=== PATIENT | female | born 1990 | race Caucasian/White ===

== ENCOUNTER 2018-10-04 01:28 | Emergency (ER) | payer OTHER ==
--- NOTE | 2018-10-04 02:03 | ED ---
GI/ HPI - HPI Summary HPI Summary: This patient is a 28 year old female presenting to [facility] with a chief complaint of vaginal bleeding since 1 hour ago. Patient states that she was just with several friends, but when she went to the bathroom, she saw blood. Patient is 10 weeks . Patient states that she presents to the ED with concerns of miscarriage. Patient states that she put a liner on, but replaced it when it filled up with blood. The pain is rated 0/10 in severity. Symptoms aggravated by nothing. Symptoms alleviated by nothing. Patient denies abd cramps, dysuria. - History of Current Complaint Chief Complaint: EDOBProblems Time Seen by Provider: 10/04/18 01:47 Stated Complaint: 10 WKS /VAGINAL BLEEDING Hx Obtained From: Patient Onset/Duration: Started Hours Ago, Still Present Timing: Constant Current Severity: Moderate Pain Intensity: 0 Associated Signs and Symptoms: Positive: Negative - abd cramping, dysuria Aggravating Factor(s): Nothing Alleviating Factor(s): Nothing - Allergy/Home Medications Allergies/Adverse Reactions: Allergies Allergy/AdvReac Type Severity Reaction Status Date / Time No Known Allergies Allergy Verified 10/04/18 01:32 Home Medications: Home Medications NK [No Home Medications Reported] 10/04/18 [History Confirmed 10/04/18] PMH/Surg Hx/FS Hx/Imm Hx Previously Healthy: Yes Opthamlomology History: Denies: Hx Legally Blind EENT History: Denies: Hx Deafness Infectious Disease History: No Infectious Disease History: Denies: Traveled Outside the [place] in Last 30 Days - Family History Known Family History: Negative: Hypertension - Social History Alcohol Use: None Hx Substance Use: No Substance Use Type: Reports: None Hx Tobacco Use: No Smoking Status (MU): Never Smoked Tobacco Review of Systems Negative: Fever Negative: Abdominal Pain Genitourinary: Other - vaginal bleeding Negative: dysuria All Other Systems Reviewed And Are Negative: Yes Physical Exam - Summary Physical Exam Summary: VITAL SIGNS: Reviewed. GENERAL: Patient is a well-developed and nourished female who is lying comfortable in the stretcher. Patient is not in any acute respiratory distress. HEAD AND FACE: No signs of trauma. No ecchymosis, hematomas or skull depressions. No sinus tenderness. EYES: PERRLA, EOMI x 2, No injected conjunctiva, no nystagmus. EARS: Hearing grossly intact. Ear canals and tympanic membranes are within normal limits. MOUTH: Oropharynx within normal limits. NECK: Supple, trachea is midline, no adenopathy, no JVD, no carotid bruit, no c- spine tenderness, neck with full ROM. CHEST: Symmetric, no tenderness at palpation LUNGS: Clear to auscultation bilaterally. No wheezing or crackles. CVS: Regular rate and rhythm, S1 and S2 present, no murmurs or gallops appreciated. ABDOMEN: Soft, non-tender. No signs of distention. No rebound no guarding, and no masses palpated. Bowel sounds are normal. EXTREMITIES: FROM in all major joints, no edema, no cyanosis or clubbing. NEURO: Alert and oriented x 3. No acute neurological deficits. Speech is normal and follows commands. PELVIC: Bedside US showed Intrauterine with movement and heartbeat positive. Mild to moderate vaginal bleeding. Cervix is closed and posteriorly. Uterine size is 12 weeks. We had an ER aide, Sarai, as a bookie SKIN: Dry and warm Triage Information Reviewed: Yes Vital Signs On Initial Exam: Initial Vitals Temp Pulse Resp BP Pulse Ox 98.6 F 78 18 142/90 100 10/04/18 01:30 10/04/18 01:30 10/04/18 01:30 10/04/18 01:30 10/04/18 01:30 Vital Signs Reviewed: Yes Diagnostics - Vital Signs Vital Signs Temp Pulse Resp BP Pulse Ox 10/04/18 01:30 98.6 F 78 18 142/90 100 - Laboratory Lab Statement: Any lab studies that have been ordered have been reviewed, and results considered in the medical decision making process. GIGU Course/Dx - Course Course Of Treatment: This patient is a 28 year old female presenting to [facility] with a chief complaint of vaginal bleeding since 1 hour ago. Patient states that she was just with several friends, but when she went to the bathroom, she saw blood. Patient is 10 weeks . Patient states that she presents to the ED with concerns of miscarriage. The pt is hemodynamically stable, alert and oriented x3. Patient will be discharged with a dx of threatened miscarriage. Patient is advised to follow up with her OBGYN on Saturday, 2018. The patient is agreeable with this plan. - Diagnoses Provider Diagnoses: Threatened miscarriage Discharge - Sign-Out/Discharge Documenting (check all that apply): Patient Departure Patient Received Moderate/Deep Sedation with Procedure: No - Discharge Plan Condition: Stable Disposition: HOME Patient Education Materials: Threatened Miscarriage (ED) Forms: *Work Release Referrals: Laurel Jarvis CNM [Primary Care Provider] - 2 Days Additional Instructions: Home rest is recommended. No sexual intercourse until the bleeding stops. Schedule an appointment with your OBGYN for Saturday. Patient is O Positive. Return to the ED for any new or worsening symptoms. - Attestation Statements Document Initiated by Scribe: Yes Documenting Scribe: Ciera Daniel Provider For Whom Scribe is Documenting (Include Credential): Jamie Bonds MD Scribe Attestation: Ciera Ram, scribed for Jamie Bonds MD on 10/04/18 at 0538.
[2018-10-04 02:25] VITALS: BP 126/75
== END 2018-10-04 02:23 | disposition home or self-care (01) ==
LOC: ED 01:28
DX: O20.0 Threatened abortion (principal); Z3A.10 10 weeks gestation of pregnancy
CPT/HCPCS: 99282

== ENCOUNTER 2018-11-07 18:48 | Emergency (ER) | payer OTHER ==
[2018-11-07] MEDS ORDERED: Ondansetron INJ* 2 MG/ML VIAL IV ONE (19:07)
[2018-11-07] MEDS ORDERED: NS 0.9% 1000 ML** 1,000 ML IV ONE ×3 (19:07→23:13)
[2018-11-07] MEDS ORDERED: Morphine 10 MG/ML VIAL (1 ml) IV ONE (19:07)
--- NOTE | 2018-11-07 19:19 | ED ---
Abdominal Pain/Female - HPI Summary HPI Summary: 28 yo female presents with pelvic pain and vaginal bleeding. She tells me that she is 15 weeks and was dx'd with a subchorionic hemorrhage about a month ago. She has had some small amounts of bleeding and small clots since that time, but today around noon she started passing large amounts of blood with large blood clots accompanied by pelvic pain. She also felt feverish and took her temperature and it was 100F. She took tylenol, but vomited soon after. Has had nothing to eat or drink due to nausea and pain since 1200. She also feels a little dizzy and attributes this to her bleeding. This is her first . Denies recent illness, SOB, chest pain, palpitations. No PMHx. - History of Current Complaint Chief Complaint: EDOBProblems Stated Complaint: 15 WKS PREG/FEVER, CRAMPS,BLEEDING PER PT Time Seen by Provider: 11/07/18 19:07 Hx Obtained From: Patient Onset/Duration: Sudden Onset Severity Initially: Severe Severity Currently: Severe Pain Intensity: 8 Pain Scale Used: 0-10 Numeric Allergies/Adverse Reactions: Allergies Allergy/AdvReac Type Severity Reaction Status Date / Time No Known Allergies Allergy Verified 11/07/18 19:38 PMH/Surg Hx/FS Hx/Imm Hx Endocrine/Hematology History: Denies: Hx Anticoagulant Therapy, Hx Blood Disorders, Hx Blood Transfusions Cardiovascular History: Denies: Hx Atrial Fibrillation, Hx Congenital Heart Disease, Hx Congestive Heart Failure, Hx Deep Vein Thrombosis, Hx Embolism Respiratory History: Denies: Hx Asthma, Hx Pulmonary Embolism GI History: Denies: Hx Gastrointestinal Bleed Sensory History: Denies: Hx Legally Blind, Hx Deafness Opthamlomology History: Denies: Hx Legally Blind Neurological History: Denies: Hx CVA, Hx Headaches, Hx Migraine - Immunization History Immunizations Up to Date: Yes Infectious Disease History: No Infectious Disease History: Denies: Traveled Outside the [place] in Last 30 Days - Family History Known Family History: Negative: Hypertension - Social History Occupation: Employed Full-time Lives: With Family Alcohol Use: None Hx Substance Use: No Substance Use Type: Reports: None Hx Tobacco Use: No Smoking Status (MU): Never Smoked Tobacco Review of Systems Positive: Fatigue Eyes: Negative ENT: Negative Cardiovascular: Negative Respiratory: Negative Positive: Abdominal Pain, Vomiting, Nausea Positive: other - Vaginal bleeding Skin: Negative Neurological: Negative Psychological: Normal All Other Systems Reviewed And Are Negative: Yes Physical Exam - Summary Physical Exam Summary: GENERAL: NAD. Pale appearing. SKIN: No rashes, sores, lesions, or open wounds. NECK: Supple. Nontender. No lymphadenopathy. CHEST: CTAB. No r/r/w. No accessory muscle use. Breathing comfortably and in no distress. CV: RRR. Without m/r/g. Pulses intact. Cap refill <2seconds ABDOMEN: Moderate lower abdominal TTP. No distention or guarding. No CVA tenderness. Bowel sounds present NEURO: Alert. PSYCH: Age appropriate behavior. Triage Information Reviewed: Yes Vital Signs On Initial Exam: Initial Vitals Temp Pulse Resp BP Pulse Ox 99.3 F 104 20 109/70 98 11/07/18 18:50 11/07/18 18:50 11/07/18 18:50 11/07/18 18:50 11/07/18 18:50 Vital Signs: Temp Pulse Resp BP Pulse Ox 97.6 F 69 15 118/78 98 11/07/18 23:58 11/07/18 23:58 11/07/18 23:58 11/07/18 23:58 11/07/18 23:58 Vital Signs Reviewed: Yes Pelvic Exam: Positive: No Cerv. Motion Tender, Active Bleeding - Mild, Other - few <5mm clots mixed with mild active bleeding. Negative: Lesions, Tender w/ Cervical Motion, Ulcers Diagnostics - Vital Signs Vital Signs Temp Pulse Resp BP Pulse Ox 11/07/18 19:03 79 27 125/86 100 11/07/18 18:50 99.3 F 104 20 109/70 98 - Laboratory Lab Results: Laboratory Tests 11/07/18 11/07/18 11/07/18 19:23 19:23 19:23 WBC 22.4 H RBC 3.70 Hgb 10.9 L Hct 33 MCV 89 MCH 30 MCHC 33 RDW 15 Plt Count 228 MPV 9.5 Neut % (Auto) 94.0 Lymph % (Auto) 1.9 [place] % (Auto) 4.0 Eos % (Auto) 0 Baso % (Auto) 0.1 Absolute Neuts (auto) 21.3 H Absolute Lymphs (auto) 0.4 L Absolute Monos (auto) 0.9 H Absolute Eos (auto) 0 Absolute Basos (auto) 0 Absolute Nucleated RBC 0 Nucleated RBC % 0 Sodium 133 L Potassium 3.6 Chloride 101 Carbon Dioxide 22 Anion Gap 10 BUN 8 Creatinine 0.60 Est GFR ( Amer) 143.0 Est GFR (Non-Af Amer) 118.2 BUN/Creatinine Ratio 13.3 Glucose 123 H Lactic Acid 1.7 Calcium 9.0 Magnesium 1.5 L Total Bilirubin 0.40 AST 18 ALT 13 Alkaline Phosphatase 62 C-Reactive Protein 11.92 H Total Protein 6.8 Albumin 3.8 Globulin 3.0 Albumin/Globulin Ratio 1.3 Lipase < 10 L Beta HCG, Quant 225265.00 Result Diagrams: 11/07/18 19:23 11/07/18 19:23 Lab Statement: Any lab studies that have been ordered have been reviewed, and results considered in the medical decision making process. Re-Evaluation - Re-Evaluation First Eval Re-Evaluation Time: 21:40 Change: Improved Comment: Pelvic pain is improved, but still present - better with po tylenol. Has not had any more passing of large clots since presenting to ED. Second Eval Re-Evaluation Time: 23:18 Change: Improved Comment: Discussed conversation I had with OBGYN with pt and her . Her pain is significantly improved, but still feels some mild bleeding. Abdominal Pain Fem Course/Dx - Course Course Of Treatment: US: IMPRESSION: 1. No intrauterine gestation identified. Recommend gynecology consultation. 2. Fluid/layering hemorrhage within the cervix and vaginal canal. 3. Multiple uterine fibroids, largest measuring up to 5.5 cm. 4. Right ovary not visualized. Discussed results with pt. In the ED she was given tylenol po, 2L NS, and zofran. WBCs expected elevated due to . Her pain significantly increased and her bleeding slowed. She passed 2 large clots when initially presenting to the ED, one included the gestational sac - which appeared intact. She was able to tolerate tylenol po and had no more episodes of vomiting. She was mildly tachycardic and her BP was on the lower end of normal on intial presentation, but these have both significantly improved s/p fluids. H/H stable. Pt and feeling emotionally well and declined any counseling or grief services here this evening. Pt is feeling well enough and wishes to be discharged at this time. She will be discharged with instructions to f/u with her OBGYN as soon as possible. Return to the ED if she develops pain, fever, or large amounts of vaginal bleeding. - Diagnoses Provider Diagnoses: Spontaneous - Provider Notifications Discussed Care Of Patient With: Xavier Koenig Time Discussed With Above Provider: 23:12 - Discussed case with Dr. Koenig. As long as bleeding has stopped or significantly slowed - pt can be manged with conservative care and f/u with his office early next week. Discharge - Sign-Out/Discharge Documenting (check all that apply): Patient Departure Patient Received Moderate/Deep Sedation with Procedure: No - Discharge Plan Condition: Stable Disposition: HOME Patient Education Materials: Miscarriage (ED) Forms: *Work Release Referrals: Xavier Koenig MD [Medical Doctor] - As Soon As Possible Additional Instructions: May take tylenol for your discomfort Maintain pelvic rest (ie, nothing per vagina) for two weeks after passage of the products of conception, at which time coitus and use of tampons may be resumed. Light vaginal bleeding can persist for a couple of weeks after the miscarriage. Call your provider or return to the ED if heavy bleeding, fever, or abdominal pain develops. Menses typically resume within six weeks. - Billing Disposition and Condition Condition: STABLE Disposition: Home
[2018-11-07 19:34] LABS: Hematocrit 33 % (33-41); Hemoglobin 10.9 g/dL (12.0-16.0); Mean Corpuscular HGB Conc 33 g/dL (31-36); Mean Corpuscular Hemoglobin 30 pg (27-31); Mean Corpuscular Volume 89 fL (80-97); Mean Platelet Volume 9.5 fL (7.4-10.4); Platelet Count 228 10^3/uL (150-450); Red Cell Distribution Width 15 % (10.5-15); White Blood Count 22.4 10^3/uL (3.5-10.8)
[2018-11-07 19:44] LABS: ABS Basophils 0 10^3/ul (0-0.2); ABS Eosinophils 0 10^3/ul (0-0.6); ABS Lymphocytes 0.4 10^3/ul (1.0-4.8); ABS Monocytes 0.9 10^3/ul (0-0.8); ABS Neutrophils 21.3 10^3/ul (1.5-7.7); ABS Nucleated RBC 0 10^3/ul; Eosinophil % 0 %; Lymphocyte % 1.9 %; Nucleated Red Blood Cells % 0
[2018-11-07 19:51] LABS: ALT 13 U/L (7-52); AST 18 U/L (13-39); Albumin 3.8 g/dL (3.2-5.2); Albumin/Globulin Ratio 1.3 (1-3); Alkaline Phosphatase 62 U/L (34-104); Anion Gap 10 mmol/L (2-11); BUN/Creatinine Ratio 13.3 (8-20); Blood Urea Nitrogen 8 mg/dL (6-24); C Reactive Protein 11.92 mg/L (<8.01); CO2 Carbon Dioxide 22 mmol/L (22-32); Chloride 101 mmol/L (101-111); EGFR Non-African American 118.2 (>60); Glucose 123 mg/dL (70-100); Magnesium 1.5 mg/dL (1.9-2.7); Potassium 3.6 mmol/L (3.5-5.0); Sodium 133 mmol/L (135-145); Total Protein 6.8 g/dL (6.4-8.9)
[2018-11-07] MEDS ORDERED: Acetaminophen TAB* 325 MG PO ONE (21:00)
[2018-11-07 23:58] VITALS: BP 118/78
== END 2018-11-08 00:11 | disposition home or self-care (01) ==
LOC: ED 18:48
DX: O03.9 Complete or unspecified spontaneous abortion without complication (principal); D25.9 Leiomyoma of uterus, unspecified; R53.83 Other fatigue; R11.2 Nausea with vomiting, unspecified; R10.2 Pelvic and perineal pain
CPT/HCPCS: 36415; 76815; 80053; 83605; 83690; 83735; 84702; 85025; 86140; 86850; 86900; 86901; 87040; 96361; 96374; 99284; A9270-GY; J2405

== ENCOUNTER 2020-07-30 14:53 | Inpatient (IN) ==
[2020-07-30 15:51] LABS: Urine Appearance Clear; Urine Bilirubin Negative (Negative); Urine Blood Negative (Negative); Urine Color Straw; Urine Glucose Negative (Negative); Urine Ketones Negative (Negative); Urine Nitrite Negative (Negative); Urine Protein Negative (Negative); Urine Specific Gravity 1.005 (1.010-1.030); Urine Urobilinogen Negative (Negative)
[2020-07-30] MEDS ORDERED: Buffered Lidocaine 1% SYRIN 1 ml INTRADERM ONE (17:08)
[2020-07-30] MEDS ORDERED: Lactated Ringers 1000 ml BAG 1,000 ML IV ONE (17:08)
[2020-07-30 17:15] LABS: ABS Basophils 0.1 10^3/ul (0-0.2); ABS Eosinophils 0.1 10^3/ul (0-0.6); ABS Lymphocytes 1.6 10^3/ul (1.0-4.8); ABS Monocytes 0.6 10^3/ul (0-0.8); ABS Neutrophils 6.3 10^3/ul (1.5-7.7); Eosinophil % 1.2 %; Hematocrit 34 % (35-47); Hemoglobin 11.5 g/dL (12.0-16.0); Mean Corpuscular HGB Conc 34 g/dL (31-36); Mean Corpuscular Hemoglobin 30 pg (27-31); Mean Corpuscular Volume 88 fL (80-97); Mean Platelet Volume 11.1 fL (7.4-10.4); Platelet Count 214 10^3/uL (150-450); Red Blood Count 3.85 10^6 /uL (3.70-4.87); Red Cell Distribution Width 14 % (10-15); White Blood Count 8.7 10^3/uL (3.5-10.8)
[2020-07-30] MEDS ORDERED: Oxytocin in LR 20 UNITS/1,000 ML BAG IVPB ONE (17:28)
[2020-07-30] MEDS ORDERED: Lactated Ringers 1000 ml BAG 1,000 ML IV SCH ×2 (18:00→21:00)
[2020-07-30] MEDS ORDERED: Oxytocin in LR 20 UNITS/1,000 ML BAG IVPB SCH (18:00)
[2020-07-30 18:07] LABS: Urine Benzodiazepine Screen None Detected (None Detect); Urine Opiates Screen None Detected (None Detect)
[2020-07-30] MEDS ORDERED: OBEPIDURAL 250 ML EPIDURAL ONE (19:56)
[2020-07-30] MEDS ORDERED: Phenylephrine 40 mcg/mL 10mL (400mcg) SYRINGE IV PUSH PRN (20:49)
[2020-07-30] MEDS ORDERED: Sodium Citrate/Citric Acid LIQ 15 ML UDC PO PRN (20:49)
[2020-07-30] MEDS ORDERED: OBEPIDURAL 250 ML EPIDURAL SCH (21:00)
[2020-07-31] MEDS ORDERED: Glycerin ADULT 2.4 gm SUPP PR PRN (00:14)
[2020-07-31] MEDS ORDERED: Dibucaine 1% OINT 28.35 GM TUBE PR PRN (00:14)
[2020-07-31] MEDS: Witch Hazel PAD JAR TOPICAL PRN (00:51)
[2020-07-31] MEDS ORDERED: Lactated Ringers 1000 ml BAG 1,000 ML IV SCH (01:00)
[2020-07-31] MEDS ORDERED: Ammonia Inhalant 1 EA AMP ONE (02:53)
[2020-07-31] MEDS ORDERED: Lidocaine 2% JELLY 6 ML TOPICAL ONE ×2 (03:17→06:32)
[2020-07-31] MEDS ORDERED: Lidocaine 1% VIAL 10 MG/ML VIAL ONE (03:24)
[2020-07-31] MEDS: Lidocaine 2% JELLY 6 ML TOPICAL SCH ×3 (09:00→20:53)
[2020-08-01 07:10] LABS: ABS Eosinophils 0.2 10^3/ul (0-0.6); ABS Monocytes 0.7 10^3/ul (0-0.8); ABS Neutrophils 6.4 10^3/ul (1.5-7.7); Eosinophil % 2.4 %; Hematocrit 29 % (35-47); Hemoglobin 9.7 g/dL (12.0-16.0); Lymphocyte % 21.1 %; Mean Corpuscular HGB Conc 34 g/dL (31-36); Mean Corpuscular Hemoglobin 30 pg (27-31); Mean Corpuscular Volume 89 fL (80-97); Mean Platelet Volume 10.2 fL (7.4-10.4); Platelet Count 161 10^3/uL (150-450); Red Blood Count 3.24 10^6 /uL (3.70-4.87); Red Cell Distribution Width 14 % (10-15); White Blood Count 9.3 10^3/uL (3.5-10.8)
[2020-08-01] MEDS: Lidocaine 2% JELLY 6 ML TOPICAL SCH ×2 (09:06→18:04)
[2020-08-01 20:18] VITALS: BP 127/80
[2020-08-01] MEDS: Witch Hazel PAD JAR TOPICAL PRN (20:19)
== END 2020-08-01 20:41 | disposition home or self-care (01) | DRG 768 ==
LOC: MCHOBOUT 14:53 → MCHOB 16:00
PROVIDERS: ADMIT Obstetrics & Gynecology; ATTEND Obstetrics & Gynecology

== ENCOUNTER 2023-12-09 07:02 | Inpatient (IN) ==
[2023-12-09] MEDS ORDERED: Nalbuphine 10 MG/ML 1 ML VIAL IV PRN (08:30)
[2023-12-09] MEDS ORDERED: Lidocaine 1% VIAL 10 MG/ML 30 ML VIAL INJ PRN (08:30)
[2023-12-09] MEDS: Lactated Ringers 1000 ml BAG 1,000 ML IV ONE (08:30)
[2023-12-09] MEDS ORDERED: Prochlorperazine 5 mg/ml 2 ml VIAL (10 mg) IV PRN (08:30)
[2023-12-09] MEDS ORDERED: Ondansetron 4 mg VIAL 2 MG/ML 2 ml VIAL IV PRN (08:35)
[2023-12-09] MEDS: Penicillin G Potassium IV 5,000,000 UNITS in NS 0.9% 100 ml BAG 100 ML IVPB ONE (09:00)
[2023-12-09 09:05] LABS: ABS Basophils 0.1 10^3/uL (0.0-0.1); ABS Eosinophils 0.2 10^3/uL (0.0-0.5); ABS Monocytes 1.1 10^3/uL (0.0-0.9); ABS Neutrophils 8.6 10^3/uL (1.5-7.6); ABS Nucleated RBC 0.01 10^3/ul; Eosinophil % 1.4 %; Hematocrit 34.6 % (35-45); Hemoglobin 11.5 g/dL (11.5-14.3); Lymphocyte % 16.7 %; Mean Corpuscular Hemoglobin 29.3 pg (27-33); Mean Corpuscular Hgb Conc 33.2 g/dL (31-36); Mean Corpuscular Volume 88.3 fL (80-97); Mean Platelet Volume 10.8 fL (7.5-11.2); Nucleated Red Blood Cells % 0.1 %/100WBC (0.0-0.8); Platelet Count 192 10^3/uL (150-450); Red Blood Count 3.92 10^6/uL (3.63-4.92); Red Cell Distribution Width 14.5 % (12-17); White Blood Count 11.9 10^3/uL (3.8-11.8)
[2023-12-09] MEDS: Oxytocin in LR 20,000 MILLI.UNIT/1,000 ML BAG IV SCH ×2 (09:26→20:39)
[2023-12-09] MEDS: Lidocaine 2% JELLY 6 ML Topical TOPICAL ONE ×2 (09:27→20:38)
[2023-12-09 09:46] LABS: Urine Benzodiazepine Screen None Detected (None Detect); Urine Cannabinoids Screen None Detected (None Detect); Urine Opiates Screen None Detected (None Detect)
[2023-12-09] MEDS: Methylergonovine 0.2 mg AMPULE 1 ml AMP ONE (09:56)
[2023-12-09] MEDS ORDERED: Glycerin ADULT 2.4 gm SUPP PR PRN (10:17)
[2023-12-09] MEDS ORDERED: Lactated Ringers 1000 ml BAG 1,000 ML IV SCH (11:00)
[2023-12-09] MEDS: Witch Hazel PAD JAR TOPICAL PRN (11:15)
[2023-12-09] MEDS: Dibucaine 1% OINT 28.35 GM TUBE PR PRN (11:16)
[2023-12-09] MEDS ORDERED: Penicillin G Potassium IV 3,000,000 UNITS in NS 0.9% 100 ml BAG 100 ML IVPB SCH (13:00)
[2023-12-09] MEDS: Methylergonovine 0.2 mg AMPULE 1 ml AMP IM ONE (20:38)
[2023-12-09] MEDS: Lactated Ringers 1000 ml BAG 1,000 ML IV SCH (20:38)
[2023-12-09] MEDS: Buffered Lidocaine 1% SYRIN 1 ml INTRADERM ONE (20:38)
[2023-12-10 06:39] LABS: ABS Basophils 0.1 10^3/uL (0.0-0.1); ABS Eosinophils 0.2 10^3/uL (0.0-0.5); ABS Lymphocytes 2.2 10^3/uL (1.0-4.8); ABS Monocytes 0.9 10^3/uL (0.0-0.9); ABS Nucleated RBC 0.01 10^3/ul; Eosinophil % 1.5 %; Hematocrit 28.4 % (35-45); Hemoglobin 9.6 g/dL (11.5-14.3); Lymphocyte % 17.7 %; Mean Corpuscular Hemoglobin 29.9 pg (27-33); Mean Corpuscular Hgb Conc 33.7 g/dL (31-36); Mean Corpuscular Volume 88.7 fL (80-97); Mean Platelet Volume 10.6 fL (7.5-11.2); Nucleated Red Blood Cells % 0.1 %/100WBC (0.0-0.8); Platelet Count 164 10^3/uL (150-450); Red Cell Distribution Width 14.6 % (12-17); White Blood Count 12.3 10^3/uL (3.8-11.8)
[2023-12-11 07:51] VITALS: BP 111/75
== END 2023-12-11 10:43 | disposition home or self-care (01) | DRG 560 ==
LOC: EDSTATUS 08:43 → MCHOB 08:45
PROVIDERS: ADMIT Advanced Practice Midwife; ATTEND Advanced Practice Midwife